=== PATIENT | female | born 2000 | race Hispanic/Latino ===

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

== ENCOUNTER 2019-05-26 13:47 | Outpatient (CLI) | payer MEDICAID ==
[2019-05-26 14:36] VITALS: BP 101/61
--- NOTE | 2019-05-26 17:36 | Ultrasound Report ---
Limited OB ultrasound for biophysical profile FINDINGS: breathing movement, spontaneous motion, tone and STEPHEN all score 2/2 for a total score of 8/8. heart rate is 129 bpm. Total STEPHEN is 11 cm. Signer Name: Earnest Mitchell MD Signed: 05/26/2019 5:31 PM Workstation Name: [id number]
== END 2019-05-26 17:38 | disposition home or self-care (01) ==
LOC: TRG 13:47
PROVIDERS: ATTEND Obstetrics & Gynecology
DX: O42.913 Preterm premature rupture of membranes, unspecified as to length of time between rupture and onset of labor, third trimester (principal); Z3A.32 32 weeks gestation of pregnancy
CPT/HCPCS: 59025; 76815; 76819